=== PATIENT | male | born 1975 | race Caucasian/White ===

== ENCOUNTER 2018-05-04 17:59 | Emergency (ER) | payer BC ==
[2018-05-04 18:15] VITALS: BP 132/78; PULSE 93; RESP 18; TEMP 98.5
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
== END 2018-05-04 20:02 | disposition home or self-care (01) ==
LOC: EC 17:59
DX: S63.501A Unspecified sprain of right wrist, initial encounter (principal); Z79.51 Long term (current) use of inhaled steroids; Z91.018 Allergy to other foods; V19.9XXA Pedal cyclist (driver) (passenger) injured in unspecified traffic accident, initial encounter; Y92.89 Other specified places as the place of occurrence of the external cause
CPT/HCPCS: 99283